=== PATIENT | male | born 1965 | race Two or more races ===

== ENCOUNTER 2017-06-03 10:16 | Emergency (ER) | payer SELFPAY ==
[~2017-06-03] VITALS: Ht 170.2 cm; Wt 93.0 kg
[2017-06-03 10:36] VITALS: BP 146/104
[2017-06-03] MEDS ORDERED: TRAM50TA PO (11:22)
[2017-06-03] MEDS ORDERED: NAPR500T PO (11:22)
[2017-06-03] MEDS ORDERED: ORPH100T PO (11:22)
--- NOTE | 2017-06-03 11:23 | PHYS DOC ---
Past Medical History Past Medical History: High Cholesterol Past Surgical History: Other Additional Past Surgical Histo: BILAT CARPAL TUNNEL,R SHOULDER Additional Information: SMOKES 1 TO 2 CIGARETTES SOME DAY Alcohol Use: None Drug Use: None Adult General Chief Complaint Chief Complaint: PAIN CONTROL [facility] HPI Patient is a 52 year old male presents to the emergency department with complaints of low back pain for 2 weeks. He was previously evaluated at urgent care and prescribed Flexeril. He states he has not gotten better and is here seeking evaluation. He denies injury, he denies loss of bowel or bladder control , denies loss of function of lower extremities, he denies abdominal pain. He did have lab work, results with him, done at urgent care. At that time he had a CBC CMP and a UA all of which were negative. Review of Systems Review of Systems Constitutional: Denies fever or chills [] Eyes: Denies change in visual acuity, redness, or eye pain [] HENT: Denies nasal congestion or sore throat [] Respiratory: Denies cough or shortness of breath [] Cardiovascular: No additional information not addressed in HPI [] GI: Denies abdominal pain, nausea, vomiting, bloody stools or diarrhea [] : Denies dysuria or hematuria [] Musculoskeletal: Low back pain Integument: Denies rash or skin lesions [] Neurologic: Denies headache, focal weakness or sensory changes [] Endocrine: Denies polyuria or polydipsia [] Allergies Allergies Allergies Coded Allergies Type Severity Reaction Last Updated Verified No Known Drug Allergies 06/03/17 No Physical Exam Physical Exam Constitutional: Well developed, well nourished, no acute distress, non-toxic appearance. [] HENT: Normocephalic, atraumatic, bilateral external ears normal, oropharynx moist, no oral exudates, nose normal. [] Eyes: PERRLA, EOMI, conjunctiva normal, no discharge. [] Neck: Normal range of motion, no tenderness, supple, no stridor. [] Cardiovascular:Heart rate regular rhythm, no murmur [] Lungs & Thorax: Bilateral breath sounds clear to auscultation [] Abdomen: Bowel sounds normal, soft, no tenderness, no masses, no pulsatile masses. [] Skin: Warm, dry, no erythema, no rash. [] Back: Mild tenderness, diffuse, lumbar region and right hip. No midline spine tenderness. Negative straight raise leg test. Neurovascular intact distally. No saddle anesthesia. Extremities: No tenderness, no cyanosis, no clubbing, ROM intact, no edema. [] Neurologic: Alert and oriented X 3, normal motor function, normal sensory function, no focal deficits noted. [] Psychologic: Affect normal, judgement normal, mood normal. [] Current Patient Data Vital Signs Vital Signs Date Time Temp Pulse Resp B/P (MAP) Pulse Ox O2 Delivery O2 Flow Rate FiO2 06/03/17 10:36 98.3 82 24 146/104 (118) 98 Room Air 98.3 EKG EKG [] Radiology/Procedures Radiology/Procedures [] Course & Med Decision Making Course & Med Decision Making Pertinent Labs and Imaging studies reviewed. (See chart for details) [] Dragon Disclaimer Dragon Disclaimer This electronic medical record was generated, in whole or in part, using a voice recognition dictation system. Departure Departure Impression: Primary Impression: Sciatica Disposition: HOME, SELF-CARE Condition: STABLE Referrals: NON,STAFF (PCP) [facility] Patient Instructions: Sciatica Scripts Tramadol Hcl (TRAMADOL HCL) 50 Mg Tablet 50 MG PO Q6H Y for PAIN, #20 TAB 0 Refills Prov: SYLVESTER ALCALA APRN 06/03/17 Orphenadrine Citrate (ORPHENADRINE CITRATE) 100 Mg Tablet.er 1 TAB PO BID, #20 TAB 1 Refill Prov: SYLVESTER ALCALA APRN 06/03/17 Naproxen (NAPROSYN) 500 Mg Tablet 500 MG PO BID, #20 TAB Prov: SYLVESTER ALCALA APRN 06/03/17 Problem Qualifiers Primary Impression: Sciatica Laterality: right Qualified Codes: M54.31 - Sciatica, right side SYLVESTER ALCALA ASSOCIATE PROFESSOR OF PSYCHOLOGY Jun 03, 2017 11:23
[2017-06-03] MEDS ORDERED: KETOROLAC TROMETHAMINE 60 MG/2 ML INJ. IM ONE (11:30)
== END 2017-06-03 11:48 | disposition home or self-care (01) ==
LOC: ER 10:16
DX: M54.41 Lumbago with sciatica, right side (principal); F17.210 Nicotine dependence, cigarettes, uncomplicated; E78.00 Pure hypercholesterolemia, unspecified
CPT/HCPCS: 96372; 99283; J1885